=== PATIENT | female | born 1965 | race Caucasian/White ===

== ENCOUNTER 2018-10-15 13:46 | Emergency (ER) | payer OTHER ==
[~2018-10-15] VITALS: Ht 162.6 cm; Wt 80.7 kg
[~2018-10-15 13:46] MED LIST: NORFLEX100MG
== END 2018-10-15 18:54 | disposition home or self-care (01) ==
LOC: ER 13:46
DX: N39.0 Urinary tract infection, site not specified (principal)

== ENCOUNTER → 2020-08-23 | Emergency (ER) | payer OTHER ==
[~2020-08-23] VITALS: Ht 157.5 cm; Wt 83.5 kg
[~2020-08-23] MED LIST changes: +KETO10TA2 PO; +PEPCID AC20 MG PO
== END | disposition home or self-care (01) ==
LOC: ER 08:36
DX: R10.31 Right lower quadrant pain (principal); R10.32 Left lower quadrant pain; Z03.818 Encounter for observation for suspected exposure to other biological agents ruled out

== ENCOUNTER 2022-05-09 07:18 | Day surgery (SDC) | payer OTHER ==
[~2022-05-09] VITALS: Ht 157.5 cm; Wt 80.7 kg
== END 2022-05-09 22:25 | disposition home or self-care (01) ==
LOC: CIR.AMB 07:18
PROVIDERS: ATTEND Surgery
DX: D24.2 Benign neoplasm of left breast (principal); N62 Hypertrophy of breast; N60.22 Fibroadenosis of left breast; N60.02 Solitary cyst of left breast; Z91.040 Latex allergy status; Z86.16 Personal history of COVID-19; E66.9 Obesity, unspecified

== ENCOUNTER 2023-06-05 16:06 | Emergency (ER) | payer OTHER ==
[~2023-06-05] VITALS: Ht 157.5 cm; Wt 80.3 kg
== END 2023-06-05 19:05 | disposition home or self-care (01) ==
LOC: ER 16:06
DX: M25.561 Pain in right knee (principal); Z88.8 Allergy status to other drugs, medicaments and biological substances; Z91.040 Latex allergy status